=== PATIENT | female | born 1970 | race Caucasian/White ===

== ENCOUNTER 2018-02-01 16:07 | Emergency (ER) | payer BC ==
[2018-02-01 16:51] VITALS: BP 139/80
--- NOTE | 2018-02-01 16:59 | UC ---
UC General HPI - HPI Summary HPI Summary: 1 week hx, headache, sore throat, laryngitis and swollen glands on sides of neck. - History of Current Complaint Chief Complaint: UCGeneralIllness Stated Complaint: LOSS OF VOICE,THROAT CONCERN,FEVER Time Seen by Provider: 02/01/18 16:52 Hx Obtained From: Patient Hx Last Menstrual Period: depo Onset/Duration: Gradual Onset Timing: Constant Pain Intensity: 5 - Allergy/Home Medications Allergies/Adverse Reactions: Allergies Allergy/AdvReac Type Severity Reaction Status Date / Time latex Allergy Rash Verified 02/01/18 16:42 Home Medications: Home Medications Acetaminophen [Tylenol Extra Strength] 1,000 mg PO ONCE 02/01/18 [History Confirmed 02/01/18] Losartan Potassium 25 mg PO DAILY 02/01/18 [History Confirmed 02/01/18] Metformin HCl [Metformin HCl ER (Osmotic] 1,000 mg PO BID 02/01/18 [History Confirmed 02/01/18] Simvastatin TAB(NF) [Zocor(NF)] 10 mg PO BEDTIME 02/01/18 [History Confirmed ] medroxyPROGESTERone ACETATE* [DEPO-Provera] 150 mg IM ONCE 02/01/18 [History Confirmed 02/01/18] PMH/Surg Hx/FS Hx/Imm Hx Endocrine History: Diabetes, Dyslipidemia Cardiovascular History: Hypertension - Surgical History Surgical History: Yes Surgery Procedure, Year, and Place: 4X C SECTIONS - Family History Known Family History: Positive: Non-Contributory - Social History Occupation: Employed Full-time Alcohol Use: Occasionally Substance Use Type: None Smoking Status (MU): Never Smoked Tobacco - Immunization History Vaccination Up to Date: Yes Review of Systems All Other Systems Reviewed And Are Negative: Yes Constitutional: Positive: Negative Skin: Positive: Negative Eyes: Positive: Negative ENT: Positive: Sore Throat Respiratory: Positive: Negative Cardiovascular: Positive: Negative Gastrointestinal: Positive: Negative Genitourinary: Positive: Negative Motor: Positive: Negative Neurovascular: Positive: Negative Musculoskeletal: Positive: Negative Neurological: Positive: Headache Psychological: Positive: Negative Physical Exam Triage Information Reviewed: Yes Appearance: Well-Appearing Vital Signs: Initial Vital Signs Temp 100.2 F 02/01/18 16:45 Pulse 89 02/01/18 16:45 Resp 16 02/01/18 16:45 BP 139/80 02/01/18 16:45 Pulse Ox 100 02/01/18 16:45 Vital Signs Reviewed: Yes Eyes: Positive: Conjunctiva Clear ENT: Positive: Pharyngeal erythema, TMs normal, Hoarse voice, Uvula midline. Negative: Nasal congestion, Nasal drainage, Tonsillar exudate, Trismus, Muffled voice Neck: Positive: Supple, Tenderness @ - Peritonsilar nodes L > R that are tender Respiratory: Positive: Lungs clear, Normal breath sounds Cardiovascular: Positive: RRR, No Murmur Abdomen Description: Positive: Nontender, No Organomegaly, Soft Bowel Sounds: Positive: Present Musculoskeletal: Positive: ROM Intact Neurological: Positive: Alert Psychological: Positive: Age Appropriate Behavior Skin Exam: Normal Diagnostics - Laboratory Diagnostic Studies Completed/Ordered: rapid strep=neg Course/Dx - Course Course Of Treatment: rapid strep=neg but ill x 1 week with worsening peritonsilar adenopathy and hx diabetes thus will cover for presumptive bacterial infection. - Differential Dx - Multi-Symptom Provider Diagnoses: Pharyngitis. Laryngitis. Discharge - Sign-Out/Discharge Documenting (check all that apply): Patient Departure All imaging exams completed and their final reports reviewed: No Studies - Discharge Plan Condition: Stable Disposition: HOME Prescriptions: Azithromycin TAB* [Zithromax TAB (Z-LUISITO) 250 mg #6 tabs] 2 tab PO .TODAY, THEN 1 DAILY #1 luisito Patient Education Materials: Pharyngitis (ED), Laryngitis (ED) Referrals: Brittnee Schmitt MD [Primary Care Provider] - Additional Instructions: FOLLOW UP WITH PRIMARY CARE IN 5-7 DAYS OR SOONER IF WORSE. - Billing Disposition and Condition Condition: STABLE Disposition: Home
[2018-02-01] MEDS ORDERED: Dexamethasone TAB* 4 MG PO ONE (17:13)
== END 2018-02-01 17:21 | disposition home or self-care (01) ==
LOC: UCCORT 16:07
DX: J02.9 Acute pharyngitis, unspecified (principal); J04.0 Acute laryngitis; R51 Headache; E78.00 Pure hypercholesterolemia, unspecified; E11.9 Type 2 diabetes mellitus without complications; I10 Essential (primary) hypertension; Z91.040 Latex allergy status; Z79.899 Other long term (current) drug therapy
CPT/HCPCS: 87651; 99212; G0463; J8540

== ENCOUNTER 2018-09-19 14:53 | Emergency (ER) | payer BC ==
[2018-09-19 15:22] VITALS: BP 136/81
[2018-09-19] MEDS ORDERED: Tetan/Diph/Pertus SYR(Tdap)* 0.5 ML SYR(BOOSTRIX) use SYR IM ONE (16:20)
--- NOTE | 2018-09-19 16:20 | UC ---
Hand/Wrist HPI - HPI Summary HPI Summary: Pt presents with c/o left thumb injury. Pt was using drill at home to hang a picture and drilled the screw through left thumb nail. screw removed fromthumb and bleeding controlled. - History Of Current Complaint Chief Complaint: UCWounds Stated Complaint: LEFT THUMB INJURY Time Seen by Provider: 09/19/18 16:09 Hx Obtained From: Patient Hx Last Menstrual Period: last depo shot 3 mos ago, no menses since ?: No Onset/Duration: Sudden Onset, Still Present Severity Initially: Mild Severity Currently: Mild Pain Intensity: 4 Character Of Pain: Dull, Aching, Throbbing Aggravating Factor(s): Movement Alleviating Factor(s): Nothing Associated Signs And Symptoms: Positive: Swelling, Other - puncture wound from screw being drilled into thumb and nail bed Related History: Dominant Hand Right - Allergies/Home Medications Allergies/Adverse Reactions: Allergies Allergy/AdvReac Type Severity Reaction Status Date / Time latex Allergy Rash Verified 09/19/18 15:16 PMH/Surg Hx/FS Hx/Imm Hx Previously Healthy: Yes Endocrine History: Diabetes Cardiovascular History: Cardiac Disease - Surgical History Surgical History: Yes Surgery Procedure, Year, and Place: 4X C SECTIONS - Family History Known Family History: Positive: Non-Contributory - Social History Occupation: Employed Full-time Lives: With Family Alcohol Use: Occasionally Substance Use Type: None Smoking Status (MU): Never Smoked Tobacco Have You Smoked in the Last Year: No - Immunization History Vaccination Up to Date: Yes Review of Systems All Other Systems Reviewed And Are Negative: Yes Constitutional: Positive: Negative Skin: Positive: Other - puncture wound Eyes: Positive: Negative ENT: Positive: Negative Respiratory: Positive: Negative Cardiovascular: Positive: Negative Gastrointestinal: Positive: Negative Genitourinary: Positive: Negative Motor: Positive: Other - tenderness at left medial nail bed Neurovascular: Positive: Negative Musculoskeletal: Positive: Myalgia - left thumb puncture wound Neurological: Positive: Negative Psychological: Positive: Negative Is Patient Immunocompromised?: No Physical Exam Triage Information Reviewed: Yes Appearance: Well-Appearing Vital Signs: Initial Vital Signs Temp 99 F 09/19/18 15:17 Pulse 71 09/19/18 15:17 Resp 16 09/19/18 15:17 BP 136/81 09/19/18 15:17 Pulse Ox 99 09/19/18 15:17 Vital Signs Reviewed: Yes Eye Exam: Normal ENT Exam: Normal ENT: Positive: Hearing grossly normal Dental Exam: Normal Neck exam: Normal Respiratory: Positive: No respiratory distress Musculoskeletal Exam: Normal Musculoskeletal: Positive: Strength Intact, Other: - puncture wound to left medial nail bed Neurological Exam: Normal Psychological Exam: Normal Skin Exam: Other - puncture wound to left medial nail bed Diagnostics - Radiology No standard instances Radiology Interpretation Completed By: Radiologist - IMPRESSION: No fracture or radiopaque foreign body is noted. Hand/Wrist Course/Dx - Differential Dx/Diagnosis Differential Diagnosis/HQI/PQRI: Foreign Body, Fracture Provider Diagnosis: Puncture wound Discharge - Sign-Out/Discharge Documenting (check all that apply): Patient Departure All imaging exams completed and their final reports reviewed: Yes - Discharge Plan Condition: Stable Disposition: HOME Patient Education Materials: Puncture Wound (ED) Referrals: Brittnee Schmitt MD [Primary Care Provider] - Amos Thompson MD [Medical Doctor] - If Needed Additional Instructions: Please follow up with your PCP as needed. - Billing Disposition and Condition Condition: STABLE Disposition: Home
== END 2018-09-19 17:00 | disposition home or self-care (01) ==
LOC: UCCORT 14:53
DX: S61.132A Puncture wound without foreign body of left thumb with damage to nail, initial encounter (principal); W26.8XXA Contact with other sharp object(s), not elsewhere classified, initial encounter; Y92.009 Unspecified place in unspecified non-institutional (private) residence as the place of occurrence of the external cause; Z23 Encounter for immunization; E11.9 Type 2 diabetes mellitus without complications; Z91.040 Latex allergy status
CPT/HCPCS: 90715; 99212; G0463